=== PATIENT | male | born 1965 ===

== ENCOUNTER 2021-09-10 06:51 | Emergency (ER) | payer SELFPAY ==
--- NOTE | 2021-09-10 06:59 | NUR ---
PT SEEN GETTING INTO TRUCK AND LEAVING HOSPITAL PROPERTY. AMBULATED WITH STEADY GAIT, NO DISTRESS.
== END 2021-09-10 07:02 | disposition left against medical advice (07) ==
LOC: ER 06:52
DX: R50.9 Fever, unspecified (principal); Z53.21 Procedure and treatment not carried out due to patient leaving prior to being seen by health care provider